=== PATIENT | female | born 1945 | race Caucasian/White ===

== ENCOUNTER → 2022-09-01 | Outpatient (CLI) | payer MEDICARE, BC ==
[~2022-09-01] MED LIST: ATOR1TAB21 PO; CARV25TA PO; MELO7.5T35 PO; TELM1TAB35 PO
== END ==
LOC: M LABSMTC 11:56
PROVIDERS: ATTEND Anesthesiology
DX: Z01.818 Encounter for other preprocedural examination (principal); Z11.52 Encounter for screening for COVID-19

== ENCOUNTER 2022-09-06 07:31 | Day surgery (SDC) | payer MEDICARE, BC ==
[~2022-09-06] VITALS: Ht 167.6 cm; Wt 75.9 kg
[~2022-09-06 07:31] MED LIST changes: +LIDOCAINE 1% 1ML PF SYRINGE (OR EYE CASES) As Ordered ONE; +PROPARACAINE 0.5% OPHTH SOL 15ML OS ONE
[2022-09-06] MEDS: CYCLOPENTOLATE 1% OPHTH SOLN 2 ML BTL OS SCH ×2 (07:59→08:18)
[2022-09-06] MEDS: TROPICAMIDE 1% OPHTH SOLN 2ML OS SCH ×2 (07:59→08:18)
[2022-09-06] MEDS: OFLOXACIN 0.3 % (OCUFLOX) OPTH SOL 5ML OS SCH ×3 (07:59→08:19)
[2022-09-06] MEDS: PHENYLEPHRINE 2.5% OPHTH SOL 2ML OS SCH ×2 (07:59→08:18)
[2022-09-06] MEDS ORDERED: TOBRADEX OPHTH OINT 3.5 GM As Ordered ONE (09:54)
[2022-09-06 10:50] VITALS: BP 149/75
[2022-09-06] MEDS ORDERED: fentaNYL 100 MCG/2 ML INJECTION As Ordered ONE (12:01)
[2022-09-06] MEDS ORDERED: MIDAZOLAM INJ 2MG/2ML VIAL (J2250 PER 1MG) As Ordered ONE (12:01)
== END 2022-09-06 11:16 | disposition home or self-care (01) ==
LOC: M SDC 07:31
PROVIDERS: ATTEND Ophthalmology
DX: H25.12 Age-related nuclear cataract, left eye (principal); I10 Essential (primary) hypertension; Z95.810 Presence of automatic (implantable) cardiac defibrillator; E78.5 Hyperlipidemia, unspecified; I34.1 Nonrheumatic mitral (valve) prolapse; Z79.899 Other long term (current) drug therapy; Z88.0 Allergy status to penicillin
CPT/HCPCS: 66984; 92015; J2250; J3010; V2632

== ENCOUNTER → 2022-11-24 | Outpatient (CLI) | payer MEDICARE, BC ==
[~2022-11-24] MED LIST changes: -LIDOCAINE 1% 1ML PF SYRINGE (OR EYE CASES) As Ordered ONE; -PROPARACAINE 0.5% OPHTH SOL 15ML OS ONE
== END ==
LOC: M LABSMTC 11:43
PROVIDERS: ATTEND Anesthesiology
DX: Z01.818 Encounter for other preprocedural examination (principal)

== ENCOUNTER 2022-11-29 06:48 | Day surgery (SDC) | payer MEDICARE, BC ==
[~2022-11-29] VITALS: Ht 167.6 cm; Wt 76.6 kg
[~2022-11-29 06:48] MED LIST changes: +CEFUROXIME 1MG/0.1ML INTRACAMERAL INJ As Ordered ONE; +LIDOCAINE 1% SDV 5ML VIAL As Ordered ONE; +PROPARACAINE 0.5% OPHTH SOL 15ML OD ONE; +UNRESOLVED CLARIFICATION ENTRY XX SCH
[2022-11-29] MEDS: PHENYLEPHRINE 2.5% OPHTH SOL 2ML OD SCH ×2 (07:11→07:39)
[2022-11-29] MEDS: TROPICAMIDE 1% OPHTH SOLN 15ML OD SCH ×2 (07:11→07:39)
[2022-11-29] MEDS: CYCLOPENTOLATE 1% OPHTH SOLN 2ML BTL OD SCH ×2 (07:11→07:39)
[2022-11-29] MEDS ORDERED: MIDAZOLAM INJ 2MG/2ML VIAL As Ordered ONE (07:11)
[2022-11-29] MEDS: OFLOXACIN 0.3 % (OCUFLOX) OPTH SOL 5ML OD SCH ×2 (07:39→07:40)
[2022-11-29] MEDS ORDERED: TOBRADEX OPHTH OINT 3.5 GM As Ordered ONE (09:37)
[2022-11-29 09:45] VITALS: BP 138/79
== END 2022-11-29 10:05 | disposition home or self-care (01) ==
LOC: M SDC 06:48
PROVIDERS: ATTEND Ophthalmology
DX: H25.11 Age-related nuclear cataract, right eye (principal); I10 Essential (primary) hypertension; I42.9 Cardiomyopathy, unspecified; E78.5 Hyperlipidemia, unspecified; I34.1 Nonrheumatic mitral (valve) prolapse; I44.7 Left bundle-branch block, unspecified; Z95.0 Presence of cardiac pacemaker; Z88.0 Allergy status to penicillin; Z79.899 Other long term (current) drug therapy; Z79.1 Long term (current) use of non-steroidal anti-inflammatories (NSAID)
CPT/HCPCS: 66984; J2250; V2632